=== PATIENT | female | born 1940 | race Caucasian/White ===

== ENCOUNTER → 2016-09-24 | Outpatient (CLI) | payer MEDICARE, OTHER ==
[~2016-09-24] MED LIST: CIPRO500 MG PO; DILTIAZEM 24HR180 MG PO; FLAGYL500 MG PO; SINGULAIR10 MG PO
== END | disposition home or self-care (01) ==
LOC: CDC 10:38
DX: I51.7 Cardiomegaly (principal); M25.562 Pain in left knee; S83.232A Complex tear of medial meniscus, current injury, left knee, initial encounter
CPT/HCPCS: 93000